=== PATIENT | female | born 1965 | race Caucasian/White ===

== ENCOUNTER → 2017-05-29 | Day surgery (SDC) | payer OTHER ==
--- NOTE | 2017-05-29 17:05 | Operative Report ---
Operative/Inv Procedure Report Surgery Date: 05/29/17 Name of Procedure: urethral dilation, cystoscopy, urethral biopsy. pap smear Pre-Operative Diagnosis: urethral stricture Post-Operative Diagnosis: same Estimated Blood Loss: scant Surgeon/Preschool Substitute Teacher: Latricia Sylvester MD Anesthesia: local monitored anesthesi Specimens: urethral biopsy and pap smear Complications: none Condition: stable Operative Indication: urethral stricture unable to be dilated in the office with difficulty voiding Operative/Procedure Note Note: An operative dictation on patient Edwina Rushing. She was seen in the office earlier in the week due to difficulty voiding and history of urethral stricture and gross hematuria with wiping after voiding. She was attempted to have a cystoscopy in the office with urethral dilation however the stricture with like cemented and was unable to be dilated and a cystoscopy was not able to be performed. As result she was consented for cystoscopy and urethral dilation possible urethral biopsy in the operative room. Risks benefits and alternatives were given and all questions were answered in the office as well as in the holding area. Patient was taken to the operating room placed on the operating table in the supine position. Timeout was performed. IV antibodies were infused. She was placed in the dorsal lithotomy position. Urethral dilation was initiated first starting with a 12 Hebrew urethral sound. This was entered into the ureter without difficulty unlike in the office setting. This was continued to be dilated up sequentially up to 30 Hebrew. It did not feel like cemented 50 in the office. There was no difficulty. The 22 Hebrew rigid cystoscope was then used to enter the bladder. The bladder was globally inspected. No abnormalities were appreciated. There is no lesions masses or trabeculation. The ureteral orifices were in their normal anatomic position. The urethra was then viewed and no stricture was visually appreciated. However the area dilation was seen and there was some mild bleeding. The cold cup biopsy forcep was used to take a biopsy of the urethra at the area of dilation. This was sent off to pathology in formalin. The area was bleeding lightly and this was the coagulated later with the Bugbee. The bladder was emptied. 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 As result she asked me to perform a Pap smear while she was in the operative room. This was done with the Pap brush as well as the plastic spatula device. This was sent to pathology as well. Patient tolerated the procedure well. She was transferred to the recovery room in stable condition. Findings: no abnormalities in the bladder no urethral abnormality appreciated visually. cervix easily seen. Discharge Disposition: PACU
== END ==
LOC: STS 02:36
DX: N35.9 Urethral stricture, unspecified (principal); R39.198 Other difficulties with micturition; R33.9 Retention of urine, unspecified; R31.9 Hematuria, unspecified; G47.33 Obstructive sleep apnea (adult) (pediatric); Z85.42 Personal history of malignant neoplasm of other parts of uterus
CPT/HCPCS: 87086; 88305; G0123; J0131; J0744; J2250